=== PATIENT | female | born 1945 | race Caucasian/White ===

== ENCOUNTER → 2016-12-02 | Outpatient (CLI) | payer MEDICARE, OTHER ==
--- NOTE | 2016-12-02 14:34 | MR ---
EXAMINATION TYPE: MR lumbar spine wo con DATE OF EXAM: 12/02/2016 COMPARISON: NONE HISTORY: 71-year-old female with low back pain and right leg numbness. TECHNIQUE: Multiplanar, multisequence images of the lumbar spine were acquired. Findings: The intervertebral discs are degenerated, variably desiccated, and diffusely bulging. Mild disc space narrowing at various levels. There is disc vacuum at L5-S1. Hypertrophic facet arthropathy mid to lower lumbar spine. There is grade 1 anterolisthesis at L5-S1. Degenerative thinning of the interspinous ligaments. Near abutment of the spinous processes. Conus medullaris is normal. No suspicious bone marrow replacement. At T11-T12, small central disc protrusion and mild ligamentum flavum thickening. While this impresses on the thecal sac, there is no significant spinal canal or neuroforaminal stenosis. At T12-L1, no spinal canal or neuroforaminal stenosis. At L1-L2, there is broad-based posterior disc protrusion impressing on to the ventral thecal sac mild ly attenuating the canal. There is mild right greater than left neuroforaminal stenosis. At L2-L3, diffuse disc bulge minimally narrowing the spinal canal. There is mild right neuroforaminal stenosis. At L3-L4, there is diffuse disc bulge with mild facet degenerative change. There is minimal impressio n on the ventral thecal sac with mild bilateral neuroforaminal stenosis. At L4-L5, ligamentum flavum thickening with facet arthropathy and mild disc bulge. Changes result in mild right greater than left neuroforaminal stenosis without spinal canal stenosis. At L5-S1, there is hypertrophic facet arthropathy with ligamentum flavum thickening and disc. Changes result in moderate right greater than left neural foraminal stenosis. No spinal canal stenosis. No prevertebral or paravertebral soft tissue abnormality seen. IMPRESSION: 1. Mild to moderate multilevel degenerative disc disease. There is mild attenuation of the thecal sac at L1-L2, L2-L3, and L3-L4 secondary to posterior disc protrusions. No canal compromise. 2. Variable mild neuroforaminal stenoses though moderate right greater than left at L5-S1. 3. Hypertrophic facet arthropathy and ligamentum flavum thickening lower lumbar spine with grade 1 an terolisthesis at L5-S1.
== END | disposition home or self-care (01) ==
LOC: RADMRIMAIN 11:41
PROVIDERS: ATTEND Family Medicine
DX: M99.73 Connective tissue and disc stenosis of intervertebral foramina of lumbar region (principal); M51.26 Other intervertebral disc displacement, lumbar region; M43.17 Spondylolisthesis, lumbosacral region; M51.36 Other intervertebral disc degeneration, lumbar region; M46.06 Spinal enthesopathy, lumbar region
CPT/HCPCS: 72148

== ENCOUNTER → 2019-08-20 | Outpatient (CLI) | payer MEDICARE, OTHER ==
--- NOTE | 2019-08-20 08:52 | US ---
EXAMINATION TYPE: US abdomen limited DATE OF EXAM: 08/20/2019 COMPARISON: NONE CLINICAL HISTORY: 74-year-old female R07.9 abdominal pain. NPO, RUQ pain TECHNIQUE: Multiple sonographic images of the right upper quadrant are obtained. FINDINGS: EXAM MEASUREMENTS: Liver Length: 15.8 cm Gallbladder Wall: 0.1 cm CBD: 0.4 cm Right Kidney: 10.0 x 5.1 x 4.3 cm Pancreas: Obscured by bowel gas Liver: Echogenic and attenuating parenchyma. The secondary and limits assessment for focal lesion. Gallbladder: wnl, fold seen. No abnormal distention, shadowing calculi, or pericholecystic fluid. Evidence for sonographic Turcios's sign: neg CBD: wnl Right Kidney: No hydronephrosis. IMPRESSION: 1. Suboptimal visualization of pancreas. 2. Hepatic steatosis. Correlate with LFTs, lipid profile, and patient risk factors. 3. No cholelithiasis or biliary ductal dilatation.
== END | disposition home or self-care (01) ==
LOC: RADUSWWP 07:37
PROVIDERS: ATTEND Internal Medicine Interventional Cardiology
DX: K76.0 Fatty (change of) liver, not elsewhere classified (principal)
CPT/HCPCS: 76705